=== PATIENT | male | born 1980 | race Caucasian/White ===

== ENCOUNTER 2023-10-25 09:47 | Outpatient (CLI) | payer OTHER, SELFPAY | END 2023-10-25 09:48 | disposition home or self-care (01) | PROVIDERS: PCP Family Medicine; Visit Provider Family Medicine | DX: Z00.00 Encounter for general adult medical examination without abnormal findings (principal); E78.00 Pure hypercholesterolemia, unspecified; N52.9 Male erectile dysfunction, unspecified | CPT/HCPCS: 80053; 80061; 84270; 84402; 84403 ==

== ENCOUNTER 2023-11-27 19:37 | Outpatient (CLI) | payer OTHER, SELFPAY ==
--- NOTE | 2023-12-11 12:12 | W.PM.SLEEP ---
Sleep Study Details Details Interpreting Provider: Juan Jose Date of Sleep Study: 11/27/23 Sleep Study Details: STUDY TYPE:? Home unattended ? BMI:? 33.2 ORDERING PROVIDER:? Michael INDICATION:? Concerns about sleep apnea ? SLEEP SUMMARY:? 418 minutes monitored RESPIRATORY SUMMARY:? AHI 29.3, supine AHI 113 left and right lateral AHI approximately 11.5 Low oxygen 76 6.5% of study oxygen less than 90% Snoring 94.4% PERIODIC LIMB MOVEMENTS OF SLEEP:? Not recorded CARDIAC:? Range 62-110, mean 79.9 IMPRESSION:? Moderate nearly severe obstructive sleep apnea much worse in the supine position but present in all positions. RECOMMENDATION: Treatment options include CPAP AutoSet 4-17, dental appliance and/or airway expansion surgery.
== END 2023-11-27 19:38 | disposition home or self-care (01) ==
LOC: SLEEP 19:38
PROVIDERS: PCP Family Medicine; Visit Provider Family Medicine
DX: G47.33 Obstructive sleep apnea (adult) (pediatric) (principal)
CPT/HCPCS: 95806

== ENCOUNTER 2024-03-24 09:38 | Outpatient (CLI) | payer BC, SELFPAY | END 2024-03-24 09:39 | disposition home or self-care (01) | PROVIDERS: PCP Family Medicine; Visit Provider Family Medicine | DX: I10 Essential (primary) hypertension (principal); R79.89 Other specified abnormal findings of blood chemistry; E78.00 Pure hypercholesterolemia, unspecified; N52.9 Male erectile dysfunction, unspecified | CPT/HCPCS: 80053; 80061; 84270; 84402; 84403; G0103 ==

== ENCOUNTER 2024-07-03 07:30 | Outpatient (CLI) | payer BC, SELFPAY | END 2024-07-03 07:31 | disposition home or self-care (01) | LOC: NFLDREF 07-05 17:48 | PROVIDERS: PCP Family Medicine; Referring Provider Family Medicine; Visit Provider Family Medicine | DX: R79.89 Other specified abnormal findings of blood chemistry (principal); E78.00 Pure hypercholesterolemia, unspecified; R53.83 Other fatigue | CPT/HCPCS: 80061; 80076; 84270; 84402; 84403 ==

== ENCOUNTER 2024-10-23 10:04 | Outpatient (CLI) | payer BC, SELFPAY | END 2024-10-23 10:05 | disposition home or self-care (01) | PROVIDERS: PCP Family Medicine; Visit Provider Family Medicine | DX: I10 Essential (primary) hypertension (principal); E78.00 Pure hypercholesterolemia, unspecified; R79.89 Other specified abnormal findings of blood chemistry; R53.83 Other fatigue; G47.30 Sleep apnea, unspecified | CPT/HCPCS: 80061; 80076; 83001; 83002; 84270; 84402; 84403 ==

== ENCOUNTER 2025-02-04 09:35 | Outpatient (CLI) | payer BC, SELFPAY | END 2025-02-04 09:36 | disposition home or self-care (01) | PROVIDERS: PCP Family Medicine; Visit Provider Family Medicine | DX: E78.00 Pure hypercholesterolemia, unspecified (principal) | CPT/HCPCS: 80076; 83695; 84270; 84402; 84403 ==